=== PATIENT | male | born 1990 | race Hispanic/Latino ===

== ENCOUNTER 2017-11-19 18:36 | Emergency (ER) | payer BC, SELFPAY ==
--- NOTE | 2017-11-19 20:23 | EDPHYS ---
Physician Documentation [facility] Name: Yobani Wen Age: 27 yrs Sex: Male : 1990 Arrival Date: 11/19/2017 Time: 18:40 Bed 19 Private MD: Keith Blandonh ED Physician Gilbert Wyatt HPI: 11/19 20:15 This 27 yrs old Male presents to ER via Ambulatory with complaints of Ear Pain.tw4 20:15 The patient presents with a fullness, hearing loss, partial, pain, that is chronic. The tw4 complaints affect the right ear and left ear. Onset: The symptoms/episode began/occurred 2 week(s) ago. Modifying factors: The symptoms are alleviated by nothing, the symptoms are aggravated by nothing. Associated signs and symptoms: The patient has no apparent associated signs or symptoms. Severity of symptoms: At their worst the symptoms were mild in the emergency department the symptoms are unchanged. The patient has not experienced similar symptoms in the past. Historical: - Allergies: 19:09 No Known Allergies; lk1 - Home Meds: 19:34 None [Active]; ak1 - PMHx: 19:09 None; lk1 - PSHx: 19:09 None; lk1 - Immunization history:: Adult Immunizations up to date. - Social history:: Smoking status: Patient/guardian denies using tobacco. ROS: 20:15 Constitutional: Negative for fever, chills, and weight loss. tw4 20:15 ENT: Positive for ear pain, hearing loss, nasal discharge, rhinorrhea, sinus congestion, sinus pain, Negative for injury or acute deformity, drainage from ear(s), pulling at ears, Teeth pain tinnitus, nasal discharge. Exam: 20:15 Constitutional: This is a well developed, well nourished patient who is awake, alert, tw4 and in no acute distress. Head/Face: Normocephalic, atraumatic. 20:15 Cardiovascular: Regular rate and rhythm with a normal S1 and S2. No gallops, murmurs, or rubs. Normal PMI, no JVD. No pulse deficits. Respiratory: Lungs have equal breath sounds bilaterally, clear to auscultation and percussion. No rales, rhonchi or wheezes noted. No increased work of breathing, no retractions or nasal flaring. Abdomen/GI: Soft, non-tender, with normal bowel sounds. No distension or tympany. No guarding or rebound. No evidence of tenderness throughout. 20:15 ENT: External ear(s): are unremarkable, Ear canal(s): are normal, TM's: fluid levels, bilaterally, Nose: is normal, Mouth: is normal, Posterior pharynx: erythema, that is moderate, exudate, that is mild. Vital Signs: 19:09 BP 120 / 59; Pulse 72; Resp 15; Temp 98.1(TE); Pulse Ox 99% on R/A; Weight 81.65 kg lk1 (R); Height 5 ft. 5 in. (165.10 cm) (R); Pain 6/10; 19:31 Temp 99.0(O); ak1 19:09 Body Mass Index 29.95 (81.65 kg, 165.10 cm) lk1 MDM: 19:19 Patient medically screened. tw4 20:15 Differential diagnosis: otitis media. Data reviewed: vital signs, nurses notes. tw4 Counseling: I had a detailed discussion with the patient and/or guardian regarding: the historical points, exam findings, and any diagnostic results supporting the discharge/admit diagnosis. Special discussion: I discussed with the patient/guardian in detail that at this point there is no indication for admission to the hospital. It is understood, however, that if the symptoms persist or worsen the patient needs to return immediately for re-evaluation. 11/19 19:38 Order name: Strep ak1 11/19 20:08 Order name: Throat Culture EDMS Administered Medications: 20:33 Drug: Motrin 800 mg Route: PO; ak1 20:36 Follow up: Response: No adverse reaction; Medication administered at discharge. ak1 Disposition: 11/19/17 20:22 Discharged to Home. Impression: Temporomandibular joint disorder, unspecified, Allergic rhinitis, unspecified. - Condition is Stable. - Discharge Instructions: Allergies, Allergic Rhinitis, Temporomandibular Joint Syndrome. - Prescriptions for Isela- D 12 Hour 60-120 mg Oral Tablet Sustained Release 12 hr - take 1 tablet by ORAL route every 12 hours As needed; 30 tablet. Ibuprofen 800 mg Oral Tablet - take 1 tablet by ORAL route every 8 hours As needed take with food; 30 tablet. - Medication Reconciliation Form, Thank You Letter, Antibiotic Education, Prescription Opioid Use form. - Follow up: Matteo Blandon DO; When: As needed; Reason: Recheck today's complaints, Continuance of care, Re-evaluation by your physician. Signatures: Dispatcher [employer] EDMS Keeley Vega, RN RN ak1 Karishma Almonte RN RN lk1 Gilbert Wyatt MD MD tw4 Corrections: (The following items were deleted from the chart) 20:36 20:22 11/19/2017 20:22 Discharged to Home. Impression: Temporomandibular joint ak1 disorder, unspecified; Allergic rhinitis, unspecified. Condition is Stable. Forms are Medication Reconciliation Form, Thank You Letter, Antibiotic Education, Prescription Opioid Use. Follow up: Matteo Blandon; When: As needed; Reason: Recheck today's complaints, Continuance of care, Re-evaluation by your physician. tw4
--- NOTE | 2017-11-19 20:23 | ER ---
Nurse's Notes [facility] Name: Yobani Wen Age: 27 yrs Sex: Male : 1990 Arrival Date: 11/19/2017 Time: 18:40 Bed 19 Private MD: Matteo Blandon Diagnosis: Temporomandibular joint disorder, unspecified;Allergic rhinitis, unspecified Presentation: 11/19 19:07 Presenting complaint: Patient states: "I am having pains in my ear and I feel like I lk1 have and ear plug in my left ear.". Transition of care: patient was not received from another setting of care. Onset of symptoms was November 05, 2017. Risk Assessment: Do you want to hurt yourself or someone else? Patient reports no desire to harm self or others. Initial Sepsis Screen: Does the patient meet any 2 criteria? No. Patient's initial sepsis screen is negative. Does the patient have a suspected source of infection? No. Patient's initial sepsis screen is negative. Care prior to arrival: None. 19:07 Method Of Arrival: Ambulatory lk1 19:07 Acuity: HAWA 5 lk1 Triage Assessment: 19:34 General: Appears in no apparent distress. Behavior is calm, cooperative. ak1 Historical: - Allergies: 19:09 No Known Allergies; lk1 - Home Meds: 19:34 None [Active]; ak1 - PMHx: 19:09 None; lk1 - PSHx: 19:09 None; lk1 - Immunization history:: Adult Immunizations up to date. - Social history:: Smoking status: Patient/guardian denies using tobacco. Screenin:20 Abuse screen: Denies threats or abuse. Denies injuries from another. Nutritional ak1 screening: No deficits noted. Tuberculosis screening: No symptoms or risk factors identified. Fall Risk None identified. Assessment: 19:31 General: Appears in no apparent distress. Pain: Complains of pain in left ear, throat. ak1 Neuro: No deficits noted. Cardiovascular: No deficits noted. Respiratory: No deficits noted. GI: No signs and/or symptoms were reported involving the gastrointestinal system. : No signs and/or symptoms were reported regarding the genitourinary system. EENT: Throat is reddened. Derm: No signs and/or symptoms reported regarding the dermatologic system. Musculoskeletal: No signs and/or symptoms reported regarding the musculoskeletal system. Vital Signs: 19:09 BP 120 / 59; Pulse 72; Resp 15; Temp 98.1(TE); Pulse Ox 99% on R/A; Weight 81.65 kg lk1 (R); Height 5 ft. 5 in. (165.10 cm) (R); Pain 6/10; 19:31 Temp 99.0(O); ak1 19:09 Body Mass Index 29.95 (81.65 kg, 165.10 cm) lk1 ED Course: 18:40 Patient arrived in ED. mr 18:40 Matteo Blandon DO is Private Physician. mr 19:08 Triage completed. lk1 19:10 Arm band placed on right wrist. lk1 19:19 Keeley Vega RN is Primary Nurse. ak1 19:19 Gilbert Wyatt MD is Attending Physician. tw4 19:31 Patient has correct armband on for positive identification. Bed in low position. Call ak1 light in reach. Pulse ox on. NIBP on. 19:34 No provider procedures requiring assistance completed. ak1 20:21 Matteo Blandon DO is Referral Physician. tw4 20:35 Patient did not have IV access during this emergency room visit. ak1 Administered Medications: 20:33 Drug: Motrin 800 mg Route: PO; ak1 20:36 Follow up: Response: No adverse reaction; Medication administered at discharge. ak1 Outcome: 20:22 Discharge ordered by . tw4 20:36 Discharged to home ambulatory. ak1 20:36 Condition: stable 20:36 Discharge instructions given to patient, Instructed on discharge instructions, follow up and referral plans. no drinking with medication, no driving heavy equipment, medication usage, Demonstrated understanding of instructions, follow-up care, medications, Prescriptions given X 2. 20:36 Patient left the ED. ak1 Signatures: Valerie Gerardo mr Keeley Vega, RN RN ak1 Karishma Almonte RN RN lk1 Gilbert Wyatt MD MD tw4
[2017-11-19] MEDS ORDERED: IBUPROFEN 400 MG TAB ONE (20:31)
[2017-11-19 20:54] VITALS: BP 120/59; O2SAT 99
[2017-11-19 20:55] VITALS: TEMP 99
== END 2017-11-19 20:36 | disposition home or self-care (01) ==
LOC: ER 18:36
DX: M26.609 Unspecified temporomandibular joint disorder, unspecified side (principal)
CPT/HCPCS: 87070; 87081; 99283

== ENCOUNTER 2025-02-24 18:13 | Emergency (ER) | payer OTHER, SELFPAY ==
[2025-02-24] MEDS ORDERED: ONDANSETRON 4 MG/2 ML VIAL ONE (19:09)
[2025-02-24] MEDS ORDERED: MORPHINE 4 MG/ML SYR ONE (19:09)
[2025-02-24] MEDS ORDERED: ACETAMINOPHEN 500 MG TAB ONE (19:10)
[2025-02-24] MEDS ORDERED: NA CHLORIDE 0.9% 1,000 ML ONE (19:10)
[2025-02-24 19:45] LABS: Absolute Lymphocytes (CBC) 2.1 K/uL (0.7-4.9); Hematocrit 41.4 % (39.6-49.0); Hemoglobin 13.9 g/dL (13.6-17.9); MCH 27.8 pg (27.0-35.0); MCHC 33.5 g/dL (32.0-36.0); MCV 82.8 fL (80-100); MPV 8.3 fL (7.6-11.3); Nucleated RBC Absolute Count 0.0 (0-0); Nucleated Red Blood Cells % 0.1 % (0-0); RBC Red Blood Cell Count 4.99 M/uL (4.33-5.43); White Blood Count 13.40 thou/uL (4.3-10.9)
[2025-02-24 19:49] LABS: Urine Microscopic Reflex YN NO UMIC
[2025-02-24 19:55] LABS: PT Prothrombin Time 14.5 SECONDS (10-13.0); PTT, Activated Partial Thromb 27.2 SECONDS (27.2-37.4); Protime INR 1.29
[2025-02-24 20:01] LABS: ALT/SGPT 105.0 U/L (16-61); AST/SGOT 51.0 U/L (15-37); Albumin 3.7 g/dL (3.4-5.0); Albumin/Globulin Ratio 0.9 (1.1-1.8); Alkaline Phosphatase 72.0 U/L (45-117); Anion Gap 9.8 mEq/L (5.0-15.0); BUN Blood Urea Nitrogen 14.0 mg/dL (7-18); Globulin 4.1 g/dL (2.3-3.5); Glucose Level 98.0 mg/dL (74-106); Potassium 3.8 mEq/L (3.5-5.1)
[2025-02-24 20:03] LABS: Influenza A Ag Negative; Influenza B Ag Negative; SARS-CoV-2 Antigen Rapid Res Negative (Negative)
--- NOTE | 2025-02-24 20:52 | RAD REPORT ---
EXAMINATION: CT ABDOMEN AND PELVIS WITH CONTRAST CLINICAL INDICATION: Abdominal pain TECHNIQUE: CT abdomen and pelvis was performed, after the administration of 100 cc Isovue-300.. Sagit gabbie and coronal reconstructions were obtained. One or more of the following dose reduction techniques were used: Automated exposure control, adjustment of the mA and kV according to patient si ze, and iterative reconstruction. Unless otherwise specified, incidental findings do not require dedicated imaging follow-up. [id number]. Oral contrast was not given which limits evaluation of bowel and appendix. COMPARISON: .2020 FINDINGS: Liver, spleen, pancreas, adrenals and kidneys appear unremarkable No evidence of diverticulitis. Retroaortic left renal vein. Normal appendix. Tiny umbilical hernia Mild posterior subluxation L5 on S1. Several enlarged left inguinal lymph nodes. Largest measures 2.2 cm. Stranding is present within the adjacent fat. . Additional enlarged lymph nodes are present along the left iliac chain. Largest 1.5 cm : IMPRESSION: Left iliac and inguinal lymphadenopathy. These may indicate lymphoma or be inflammatory. Follow-up ul trasound in 4 weeks recommended to assess stability/resolution. If the lymph nodes do not diminished in size then they would be amenable to a percutaneous ultrasound-guided biopsy.
[2025-02-24] MEDS ORDERED: CEFTRIAXONE 1000 MG/VIAL ONE (22:05)
[2025-02-24] MEDS ORDERED: KETOROLAC 30 MG/ML INJ ONE (22:05)
--- NOTE | 2025-02-24 22:20 | ER ---
Nurse's Notes [facility] Name: Yobani Wen Age: 34 yrs Sex: Male : 1990 Arrival Date: 02/24/2025 Time: 18:13 Bed 9 Private MD: Diagnosis: Abdominal pain, unspecified;Lower abdominal pain, unspecified Presentation: 02/24 18:30 Chief complaint: Patient states: Lower abdominal pain, left low back, fever, x 1 week. jl7 Coronavirus screen: At this time, the client does not indicate any symptoms associated with coronavirus-19. Ebola Screen: No symptoms or risks identified at this time. Initial Sepsis Screen: Does the patient meet any 2 criteria? No. Patient's initial sepsis screen is negative. Does the patient have a suspected source of infection? No. Patient's initial sepsis screen is negative. Risk Assessment: Do you want to hurt yourself or someone else? Patient reports no desire to harm self or others. Onset of symptoms was February 16, 2025. 18:30 Method Of Arrival: Ambulatory [facility] 18:30 Acuity: HAWA 3 jl7 Triage Assessment: 18:32 General: Appears in no apparent distress. uncomfortable, ill, Behavior is calm, jl7 cooperative, appropriate for age. Pain: Complains of pain in back and abdomen Pain currently is 8 out of 10 on a pain scale. GI: Reports nausea. Historical: - Allergies: 18:32 No Known Allergies; jl7 - Home Meds: 18:32 None [Active]; jl7 - PMHx: 18:32 None; jl7 - PSHx: 18:32 None; jl7 - Immunization history:: Adult Immunizations unknown. - Infectious Disease History:: Denies. - Social history:: Smoking status: Patient denies any tobacco usage or history of. Screenin:02 [facility] ED Fall Risk Assessment (Adult) History of falling in the last 3 months, cc6 including since admission No falls in past 3 months (0 pts) Confusion or Disorientation No (0 pts) Intoxicated or Sedated No (0 pts) Impaired Gait No (0 pts) Mobility Assist Device Used No (0 pt) Altered Elimination No (0 pt) Score/Fall Risk Level 0 - 2 = Low Risk Oriented to surroundings, Maintained a safe environment, Hourly rounding (assess needs \T\ fall precautionary measures) done. Abuse screen: Denies threats or abuse. Denies injuries from another. Nutritional screening: No deficits noted. Tuberculosis screening: No symptoms or risk factors identified. Assessment: 19:53 Reassessment: Patient is alert, oriented x 3, equal unlabored respirations, skin cc6 warm/dry/pink. General: Appears comfortable, well groomed, Behavior is calm, cooperative. Pain: Complains of pain in left lower quadrant Pain radiates to low back area Pain currently is 8 out of 10 on a pain scale. Quality of pain is described as sharp, Pain began. Neuro: Level of Consciousness is awake, alert, obeys commands, Oriented to person, place, time, situation. Cardiovascular: Patient's skin is warm and dry. Respiratory: Airway is patent Respiratory effort is even, unlabored, Respiratory pattern is regular, symmetrical. GI: Bowel sounds present X 4 quads. Abd is non tender X 4 quads. 20:45 Reassessment: Patient and/or family updated on plan of care and expected duration. Pain cc6 level reassessed. Patient is alert, oriented x 3, equal unlabored respirations, skin warm/dry/pink. 21:50 Reassessment: Patient and/or family updated on plan of care and expected duration. Pain cc6 level reassessed. Patient is alert, oriented x 3, equal unlabored respirations, skin warm/dry/pink. 22:16 Reassessment: No changes from previously documented assessment. Patient and/or family cc6 updated on plan of care and expected duration. Pain level reassessed. Vital Signs: 18:30 BP 121 / 79; Pulse 100; Resp 17; Temp 100.3; Pulse Ox 99% ; Weight 94.35 kg; Height 5 7 ft. 6 in. ; Pain 8/10; 20:19 BP 103 / 64; Pulse 84; Resp 16; Temp 99.4; Pulse Ox 98% ; Pain 3/10; cc6 21:53 BP 108 / 61; Pulse 87; Resp 16; Temp 99.6(O); Pulse Ox 98% ; Pain 5/10; cc6 22:58 BP 109 / 66; Pulse 85; Resp 16; Pulse Ox 98% ; cc6 18:30 Body Mass Index 33.57 (94.35 kg, 167.64 cm) 7 18:30 Pain Scale: Adult jl7 20:19 Pain Scale: Adult cc6 21:53 Pain Scale: Adult cc6 ED Course: 18:15 Patient arrived in ED. rg4 18:15 [facility] sb4 18:15 Diego Maher MD is Attending Physician. sb4 18:32 Triage completed. jl7 18:32 Arm band placed on right wrist. Patient placed in waiting room, Patient notified of jl7 wait time. 18:34 Radiology exam delayed due to lab results not completed at this time. (BUN/Creatinine) nj IV insertion attempt and/or patient not having appropriate IV at this time. 19:45 Inserted saline lock: 20 gauge in right antecubital area, using aseptic technique. IV cc6 discontinued, intact, bleeding controlled, No redness/swelling at site. Pressure dressing applied. 19:52 COVID-19 Ag + Flu A+B Ag Sent. cc6 19:52 CMP Sent. cc6 19:52 Lactate w/ 2H reflex if indic. Sent. cc6 19:52 Protime (+inr) Sent. cc6 19:52 Ptt, Activated Sent. cc6 20:02 Attending Physician role handed off by Diego Maher MD tw7 20:02 Boaz Martinez MD is Attending Physician. tw7 20:03 Blood Culture Adult (2) Sent. cc6 20:22 Federica Almonte, RN is Primary Nurse. cc6 20:31 CT Abd/Pelvis - IV Contrast Only In Process Unspecified. EDMS 22:49 No provider procedures requiring assistance completed. cc6 22:55 Patient has correct armband on for positive identification. Placed in gown. Bed in low cc6 position. Call light in reach. Provided Education on: call light. Administered Medications: 19:21 Drug: Acetaminophen PO 1000 mg PO once Route: PO; ha1 20:18 Follow up: Response: No adverse reaction; Temperature is decreased cc6 19:38 Drug: NS 0.9% IV 1000 ml IV at 1 bolus Per protocol; to be given as a bolus over 60 cc6 minutes Route: IV; Rate: 1 bolus; Site: right antecubital; 20:45 Follow up: Response: No adverse reaction; IV Status: Completed infusion cc6 19:40 Drug: Ondansetron IVP 4 mg IVP once; over 2 minutes Route: IVP; Site: right antecubital;cc6 20:19 Follow up: Response: No adverse reaction cc6 19:44 Drug: morphine IVP or IV 4 mg IVP once over 4 mins Route: IVP; Infused Over: 4 mins; cc6 Site: right antecubital; 20:19 Follow up: Response: No adverse reaction; Pain is decreased cc6 22:09 Drug: Ketorolac IVP 15 mg IVP once Route: IVP; Site: right antecubital; cc6 22:30 Follow up: Response: No adverse reaction cc6 22:14 Drug: Rocephin IV 1 grams IV at calculated rate once; Given slow IV push per pharmacy jj7 instructions Route: IV; Rate: calculated rate; Site: right antecubital; 22:30 Follow up: Response: No adverse reaction; IV Status: Completed infusion cc6 Medication: 22:55 VIS not applicable for this client. cc6 Outcome: 22:19 Discharge ordered by tw7 22:54 Discharged to home ambulatory, cc6 22:54 Condition: stable 22:54 Discharge instructions given to patient, Instructed on discharge instructions, medication usage, Demonstrated understanding of instructions, medications, Prescriptions given X 3, 23:00 Patient left the ED. cc6 Signatures: Dispatcher [employer] EDMS Dhara Crowe rg4 Jackson Noguera Jahala, RN RN jl7 Lindsey Mejia RN RN ha1 Lianna Mcqueen RN RN jj7 Jeanne Manzo PA-C PARandal [email or web address] Federica Almonte RN RN cc6 Boaz Martinez MD MD tw7 Corrections: (The following items were deleted from the chart) 22:53 20:45 Reassessment: No changes from previously documented assessment. Patient and/or cc6 family updated on plan of care and expected duration. Pain level reassessed. Patient is alert, oriented x 3, equal unlabored respirations, skin warm/dry/pink. cc6
--- NOTE | 2025-02-24 22:20 | EDPHYS ---
Physician Documentation [facility] Name: Yobani Wen Age: 34 yrs Sex: Male : 1990 Arrival Date: 02/24/2025 Time: 18:13 Bed 9 Private MD: ED Physician Boaz Martinez HPI: 02/24 18:36 This 34 yrs old Male presents to ER via Ambulatory with complaints of sb4 Abdominal Pain, Back Pain, Pelvic Pain. 18:36 Patient reports left lower abdominal/groin pain for a week now that radiates around to sb4 his left flank. He reports associated nausea, diarrhea, fever, and chills. Has been taking Tylenol, ibuprofen, and amoxicillin at home without significant relief in symptoms. Denies any difficulty urinating or blood in his urine. Denies any history of kidney stones. He denies any testicular pain, testicular swelling or warmth.. Historical: - Allergies: 18:32 No Known Allergies; jl7 - Home Meds: 18:32 None [Active]; jl7 - PMHx: 18:32 None; jl7 - PSHx: 18:32 None; jl7 - Immunization history:: Adult Immunizations unknown. - Infectious Disease History:: Denies. - Social history:: Smoking status: Patient denies any tobacco usage or history of. ROS: 18:36 Respiratory: Negative for shortness of breath, cough, wheezing, and pleuritic chest sb4 pain, 18:36 Constitutional: Positive for body aches, chills, fatigue, fever, malaise, 18:36 Abdomen/GI: Positive for abdominal pain, nausea, diarrhea, 18:36 : Positive for pelvic pain, 18:36 All other systems are negative, Exam: 18:38 Head/Face: Normocephalic, atraumatic. Eyes: Extra-ocular motions intact. Periorbital sb4 areas with no swelling, redness, or edema. ENT: Mucous membranes moist. Cardiovascular: Regular rate and rhythm with a normal S1 and S2. Respiratory: No increased work of breathing, no retractions or nasal flaring. Skin: Warm, dry with normal turgor. Normal color with no rashes, no lesions, and no evidence of cellulitis. 18:38 Constitutional: The patient appears alert, awake, uncomfortable, 18:39 Back: CVA tenderness, is absent, sb4 19:53 Abdomen/GI: Inspection: abdomen appears normal, Bowel sounds: normal, Palpation: soft, sb4 mild abdominal tenderness, in the anterior aspect of left lateral abdomen, rebound tenderness, is not appreciated, 19:53 : Vital Signs: 18:30 BP 121 / 79; Pulse 100; Resp 17; Temp 100.3; Pulse Ox 99% ; Weight 94.35 kg; Height 5 jl7 ft. 6 in. ; Pain 8/10; 20:19 BP 103 / 64; Pulse 84; Resp 16; Temp 99.4; Pulse Ox 98% ; Pain 3/10; cc6 21:53 BP 108 / 61; Pulse 87; Resp 16; Temp 99.6(O); Pulse Ox 98% ; Pain 5/10; cc6 22:58 BP 109 / 66; Pulse 85; Resp 16; Pulse Ox 98% ; cc6 18:30 Body Mass Index 33.57 (94.35 kg, 167.64 cm) jl7 18:30 Pain Scale: Adult jl7 20:19 Pain Scale: Adult cc6 21:53 Pain Scale: Adult cc6 MDM: 18:16 Medical Screening Exam initiated sb4 18:42 Differential diagnosis: appendicitis, diverticulitis, non-specific abd pain, sb4 Prostatitis, Pyelonephritis, Ureterolithiasis, urinary tract infection, Epididymitis, inguinal hernia. 22:18 Data reviewed: vital signs, nurses notes. ED course: 34-year-old male denies past tw7 medical history presents ED complaints of lower abdominal pain rating to his back and fever. Patient was found to be by my colleague pending further imaging And disposition. patient also reports associated vomiting and diarrhea. On my examination patient has low-grade fever, patient has inguinal lymphadenopathy, abdomen is soft nontender no rebound or guarding. I considered but not suspect acute surgical pathology. CT abdomen pelvis performed shows left iliac and inguinal lymphadenopathy, differential is lymphoma versus infectious versus inflammatory. Lab work here in the ED shows a leukocytosis of 13. Otherwise, hemoglobin. Normal platelets. Patient has normal kidney function. Normal electrolytes. Urinalysis is negative for UTI. Lactic acid is negative. Patient is here in the ED with acute onset groin pain and fever as symptoms is likely an acute infection, although I did inform patient that lymphoma is in differential diagnosis. Patient reports that he has had this type of lymphadenopathy before in the past years ago that resolved with antibiotics. Patient denies new sexual partners. Denies dysuria. Denies penile discharge. Patient has lymphadenopathy likely from intra-abdominal versus intrapelvic infection. Patient is given a dose of IV antibiotics in the ED. Patient is discharged on oral antibiotics with instructions follow-up with his primary care doctor for repeat imaging to ensure resolution of this lymphadenopathy after treatment with antibiotics. Strict return precautions were discussed. Patient reports understanding of this plan. . 02/24 18:25 Order name: Blood Culture Adult (2) [facility] 02/24 18:25 Order name: CBC with Diff; Complete Time: 19:47 [facility] 02/24 18:25 Order name: CMP; Complete Time: 20:02 [facility] 02/24 18:25 Order name: Lactate w/ 2H reflex if indic.; Complete Time: 20:02 [facility] 02/24 18:25 Order name: Protime (+inr); Complete Time: 19:59 [facility] 02/24 18:25 Order name: Ptt, Activated; Complete Time: 19:59 [facility] 02/24 18:25 Order name: UA Rfx Merlin Cult if indicated; Complete Time: 19:50 4 02/24 18:25 Order name: COVID-19 Ag + Flu A+B Ag; Complete Time: 20:16 [facility] 02/24 18:25 Order name: CT Abd/Pelvis - IV Contrast Only; Complete Time: 21:15 4 02/24 18:25 Order name: IV Saline Lock - Large Bore; Complete Time: 19:52 [facility] 02/24 18:25 Order name: Labs collected and sent; Complete Time: 19:52 [facility] 02/24 18:25 Order name: Vital Signs; Complete Time: 19:52 [facility] 02/24 18:25 Order name: Gown patient; Complete Time: 19:14 sb4 Administered Medications: 19:21 Drug: Acetaminophen PO 1000 mg PO once Route: PO; ha1 20:18 Follow up: Response: No adverse reaction; Temperature is decreased cc6 19:38 Drug: NS 0.9% IV 1000 ml IV at 1 bolus Per protocol; to be given as a bolus over 60 cc6 minutes Route: IV; Rate: 1 bolus; Site: right antecubital; 20:45 Follow up: Response: No adverse reaction; IV Status: Completed infusion cc6 19:40 Drug: Ondansetron IVP 4 mg IVP once; over 2 minutes Route: IVP; Site: right antecubital;cc6 20:19 Follow up: Response: No adverse reaction cc6 19:44 Drug: morphine IVP or IV 4 mg IVP once over 4 mins Route: IVP; Infused Over: 4 mins; cc6 Site: right antecubital; 20:19 Follow up: Response: No adverse reaction; Pain is decreased cc6 22:09 Drug: Ketorolac IVP 15 mg IVP once Route: IVP; Site: right antecubital; cc6 22:30 Follow up: Response: No adverse reaction cc6 22:14 Drug: Rocephin IV 1 grams IV at calculated rate once; Given slow IV push per pharmacy jj7 instructions Route: IV; Rate: calculated rate; Site: right antecubital; 22:30 Follow up: Response: No adverse reaction; IV Status: Completed infusion cc6 Disposition: 22:27 I reviewed the patient's care provided by Advanced Practice Provider \T\ agree w/ the tw7 diagnosis \T\ care plan. I personally saw the pt \T\ performed a substantive portion of the visit, incldng all aspects of the (History/Exam/Medical Decision Making). Disposition Summary: 02/24/25 22:19 Discharge Ordered Notes: Location: Home tw7 Condition: Stable tw7 Problem: new tw7 Symptoms: have improved tw7 Diagnosis - Abdominal pain, unspecified tw7 - Lower abdominal pain, unspecified tw7 Discharge Instructions: - Discharge Summary Sheet tw7 - Abdominal Pain, Adult tw7 - Lymphadenopathy tw7 Forms: - Work release form rv1 - Medication Reconciliation Form tw7 - Antibiotic Education tw7 - Prescription Opioid Use tw7 - Patient Portal Instructions tw7 - Leadership Thank You Letter tw7 Prescriptions: - Motrin IB 200 mg Oral Tablet - take 1 tablet ORAL route every 6 hours As needed as needed with food; 40 tw7 tablet; Refills: 0, Product Selection Permitted - Doxycycline Monohydrate 100 mg Oral Tablet - take 1 tablet ORAL route every 12 hours for 10 days; 20 tablet; Refills: 0, tw7 Product Selection Permitted - cefpodoxime 100 mg Oral Tablet - take 1 tablet ORAL route every 12 hours for 10 days take with food; 20 tablet; tw7 Refills: 0, Product Selection Permitted Signatures: Dispatcher [employer] EDMS Nikolai Perales RN RN jl7 Lindsey Mejia, RN RN ha1 Lianna Mcqueen RN RN jj7 Jeanne Manzo PA-C PARandal sb4 Federica Almonte, RN RN cc6 Boaz Martinez MD MD tw7 Corrections: (The following items were deleted from the chart) 18:25 18:25 BLOOD CULTURE*+BA.LAB.BRZ ordered. EDMS EDMS 18:25 18:25 CBC+H.LAB.BRZ ordered. EDMS EDMS 18:25 18:25 COMPREHENSIVE METABOLIC PANEL+C.LAB.BRZ ordered. EDMS EDMS 18:25 18:25 LACTATE+C.LAB.BRZ ordered. EDMS EDMS 18:25 18:25 PROTIME (+INR)+COAG.LAB.BRZ ordered. EDMS EDMS 18:25 18:25 PTT, ACTIVATED+COAG.LAB.BRZ ordered. EDMS EDMS 18:25 18:25 UA Rfx Merlin Cult if indicated+U.LAB.BRZ ordered. EDMS EDMS 18:25 18:25 COVID-19 Ag + Flu A+B Ag+I.LAB.BRZ ordered. EDMS EDMS 18:25 18:25 Abdomen Pelvis W Con+CT.RAD.BRZ ordered. EDMS EDMS 18:38 18:36 Patient reports left lower abdominal/groin pain for a week now that radiates sb4 around to his left flank. He reports associated nausea, diarrhea, fever, and chills. Has been taking Tylenol, ibuprofen, and amoxicillin at home without significant relief in symptoms. Denies any difficulty urinating or blood in his urine. Denies any history of kidney stones. sb4 19:54 18:38 Head/Face: Normocephalic, atraumatic. Eyes: Extra-ocular motions intact. sb4 Periorbital areas with no swelling, redness, or edema. ENT: Mucous membranes moist. Cardiovascular: Regular rate and rhythm with a normal S1 and S2. Respiratory: No increased work of breathing, no retractions or nasal flaring. Abdomen/GI: Soft, non-tender, no distension. Skin: Warm, dry with normal turgor. Normal color with no rashes, no lesions, and no evidence of cellulitis. sb4
[2025-02-25 04:11] VITALS: O2SAT 98
[2025-02-25 04:13] VITALS: TEMP 99.6
[2025-02-25 04:15] VITALS: BP 109/66
== END 2025-02-24 23:00 | disposition home or self-care (01) ==
LOC: ER 18:13
DX: R10.32 Left lower quadrant pain (principal); R10.2 Pelvic and perineal pain; R11.0 Nausea; R19.7 Diarrhea, unspecified; Z11.52 Encounter for screening for COVID-19
CPT/HCPCS: 87040 ×2; 85025; 36415; 85610; 83605; 85730; 81003; 80053; 74177; 87428; Q9967; J2405; J7030; J0696